=== PATIENT | female | born 1960 | race Caucasian/White ===

== ENCOUNTER 2017-06-07 12:19 | Emergency (ER) | payer MEDICAID, OTHER ==
[~2017-06-07] VITALS: Ht 162.6 cm; Wt 86.2 kg
[~2017-06-07 12:19] MED LIST: ALEN70TA45 PO; ASPI81TA31 PO; BACL10TA PO; CALC-1105 PO; CHOL100034 PO; CYAN10009 PO; DULO60CA45 PO; FLUT50DI IH; GABA600T PO; GING250C PO; LORA10TA47 PO; LOSA50TA3 PO; MAGN400C PO; METO50TA7 PO; NORT25CA PO; OMEP40CA37 PO; OXYM30SP NS; PREG200C PO; SODI1KIT4 NS; TRAZ-147 PO
--- NOTE | 2017-06-07 12:35 | NUR ---
Patient is resting comfortably on gurney with eyes closed, extra warm blankets x2 on, comfort & safety measures initiated. Potential delays explained to patient & family- verbalized understanding. No questions or concerns at this time.
[2017-06-07] MEDS ORDERED: PRED1TAB PO (12:51)
[2017-06-07] MEDS ORDERED: ATOR20TA PO (12:51)
[2017-06-07] MEDS ORDERED: SULI200T4 PO (12:51)
[2017-06-07] MEDS ORDERED: HYDR200T4 PO (12:51)
[2017-06-07] MEDS ORDERED: LOSA50TA21 PO (12:51)
[2017-06-07] MEDS ORDERED: GABA600T2 PO (12:51)
[2017-06-07] MEDS ORDERED: METO-304 PO (12:51)
[2017-06-07] MEDS ORDERED: CLON1TAB4 PO (12:51)
[2017-06-07] MEDS ORDERED: CALCIUM CITRATE (12:51)
[2017-06-07] MEDS ORDERED: [UNRECOGNIZED DRUG - REMARK] (12:51)
[2017-06-07] MEDS ORDERED: MISO200T PO (12:51)
[2017-06-07] MEDS ORDERED: VITAMIN E (12:51)
[2017-06-07] MEDS ORDERED: DULO60CA45 PO (12:51)
[2017-06-07] MEDS ORDERED: SUCR1TAB PO (12:51)
[2017-06-07] MEDS ORDERED: PANT40TA4 PO (12:51)
[2017-06-07] MEDS ORDERED: [UNRECOGNIZED DRUG - OTHER] PO (12:51)
[2017-06-07] MEDS ORDERED: VITAMIN B12 (12:51)
[2017-06-07] MEDS ORDERED: QUET25TA PO (12:51)
[2017-06-07] MEDS ORDERED: LURA40TA PO (12:51)
[2017-06-07] MEDS ORDERED: ASPI-605 PO (12:51)
[2017-06-07] MEDS ORDERED: ALENDRONATE (12:51)
[2017-06-07] MEDS ORDERED: TRAZ-147 PO (12:51)
[2017-06-07] MEDS ORDERED: SULF500T6 PO ×2 (12:51)
[2017-06-07] MEDS ORDERED: [UNRECOGNIZED DRUG - MIXTURE] (12:51)
--- NOTE | 2017-06-07 13:17 | NUR ---
MD at bedside evaluating patient, pending MD orders at this time
--- NOTE | 2017-06-07 14:33 | NUR ---
Patient discharged to home in stable conditon. Written and verbal after care instructions given to patient and adult daughter. Patient and family verbalized understanding of instructions.
== END 2017-06-07 14:33 | disposition home or self-care (01) ==
LOC: ER 12:19
DX: M54.2 Cervicalgia (principal); I10 Essential (primary) hypertension; M79.7 Fibromyalgia; Z79.82 Long term (current) use of aspirin
CPT/HCPCS: 71010; 96372 ×4; 99284; A4663; J1170 ×2; J2550 ×2

== ENCOUNTER 2017-08-06 10:14 | Emergency (ER) | payer OTHER ==
[~2017-08-06] VITALS: Ht 162.6 cm; Wt 80.3 kg
[~2017-08-06 10:14] MED LIST changes: +ALENDRONATE; +ASPI-605 PO; +ATOR20TA PO; +CALCIUM CITRATE; +CLON1TAB4 PO; +GABA600T2 PO; +HYDR200T4 PO; +LOSA50TA21 PO; +LURA40TA PO; +METO-304 PO; +MISO200T PO; +PANT40TA4 PO; +PRED1TAB PO; +QUET25TA PO; +SUCR1TAB PO; +SULF500T6 PO; +SULI200T4 PO; +VITAMIN B12; +VITAMIN E; +[UNRECOGNIZED DRUG - MIXTURE]; +[UNRECOGNIZED DRUG - OTHER] PO; +[UNRECOGNIZED DRUG - REMARK]
--- NOTE | 2017-08-06 10:30 | NUR ---
DR SUNG AT THE BEDSIDE FOR EVAL AND EXAM.
[2017-08-06] MEDS ORDERED: HYDROMORPHONE 1 MG/1 ML DISP.SYRIN IM ONE (10:45)
[2017-08-06] MEDS ORDERED: PROMETHAZINE HCL 25 MG/1 ML VIAL IM ONE (10:45)
[2017-08-06] MEDS ORDERED: HYDROMORPHONE 2 MG/1 ML DISP.SYRIN ONE (10:54)
[2017-08-06] MEDS ORDERED: PROMETHAZINE HCL 25 MG/1 ML VIAL ONE (10:55)
--- NOTE | 2017-08-06 11:11 | NUR ---
Patient discharged to home in stable conditon. Written and verbal after care instructions given. Patient verbalizes understanding of instructions. PT LEFT ER ACCOMAPINED BY FAMILY.
[2017-08-06 11:12] VITALS: BP 113/62
== END 2017-08-06 11:13 | disposition home or self-care (01) ==
LOC: ER 10:14
DX: G89.29 Other chronic pain (principal); M54.9 Dorsalgia, unspecified; I10 Essential (primary) hypertension; F32.9 Major depressive disorder, single episode, unspecified; M79.7 Fibromyalgia; Z79.82 Long term (current) use of aspirin
CPT/HCPCS: 96372 ×2; 99284; A4663; J1170; J2550

== ENCOUNTER 2017-11-03 19:06 | Emergency (ER) | payer OTHER ==
[~2017-11-03] VITALS: Ht 160 cm; Wt 82.6 kg
[~2017-11-03 19:06] MED LIST changes: -METO-304 PO; +METO-357 PO
--- NOTE | 2017-11-03 19:50 | NUR ---
Dr Gibson at bedside for assessment and evaluation
[2017-11-03] MEDS ORDERED: diphenhydrAMINE 50 MG/1 ML VIAL ONE ×2 (20:12→20:57)
[2017-11-03] MEDS ORDERED: HYDROMORPHONE 2 MG/1 ML DISP.SYRIN ONE ×2 (20:13→20:58)
[2017-11-03] MEDS ORDERED: HYDROMORPHONE 1 MG/1 ML DISP.SYRIN IM ONE ×2 (20:15→21:00)
[2017-11-03] MEDS ORDERED: diphenhydrAMINE 50 MG/1 ML VIAL IM ONE ×2 (20:15→21:00)
[2017-11-03 20:26] LABS: BASOPHILS # (AUTO) 0.1 K/uL (0.0-8.0); BASOPHILS % (AUTO) 0.9 % (0.0-2.0); EOSINOPHILS # (AUTO) 0.2 K/uL (0.0-0.7); EOSINOPHILS % (AUTO) 2.2 % (0.0-7.0); HEMATOCRIT 35.2 % (31.2-41.9); HEMOGLOBIN 11.9 g/dL (10.9-14.3); LYMPHOCYTES # (AUTO) 2.1 K/uL (20.0-40.0); LYMPHOCYTES % (AUTO) 30.9 % (20.5-51.5); MEAN CORPUSCULAR HEMOGLOBIN 31.8 uug (24.7-32.8); MEAN CORPUSCULAR HGB CONC 34 g/dL (32.3-35.6); MEAN CORPUSCULAR VOLUME 94.1 fL (75.5-95.3); MONOCYTES # (AUTO) 0.6 K/uL (2.0-10.0); MONOCYTES % (AUTO) 9.3 % (0.0-11.0); NEUTROPHILS # (AUTO) 3.8 K/uL (1.8-8.9); NEUTROPHILS % (AUTO) 56.7 % (38.5-71.5); PLATELET COUNT (AUTO) 160 K/uL (179-408); RED BLOOD CELL COUNT(AUTO) 3.74 MIL/uL (3.63-4.92); WHITE BLOOD COUNT (AUTO) 6.8 K/uL (3.8-11.8)
--- NOTE | 2017-11-03 20:26 | NUR ---
burner technician at bedside to transport patient for CT
[2017-11-03 20:32] LABS: CREATININE 0.9 mg/dL (0.6-1.3); POTASSIUM 4.2 mmol/L (3.5-5.1)
[2017-11-03 20:38] LABS: BILIRUBIN,TOTAL 0.3 mg/dL (0.2-1.0)
--- NOTE | 2017-11-03 20:38 | NUR ---
Returned from CT, no significant events. Addendum: 11/03/17 at 2039 by LENNIE Pending results
--- NOTE | 2017-11-03 22:18 | NUR ---
Patient discharged to home in stable conditon accompanied by daughter. Instructed not to drive. Written and verbal after care instructions given. Patient verbalizes understanding of instructions. Assisted to auto with wheelchair. Left facility at [id number]
[2017-11-03 22:20] VITALS: BP 148/67
== END 2017-11-03 22:20 | disposition home or self-care (01) ==
LOC: ER 19:07
DX: M51.16 Intervertebral disc disorders with radiculopathy, lumbar region (principal); I10 Essential (primary) hypertension; G89.29 Other chronic pain; Z79.82 Long term (current) use of aspirin; Z79.891 Long term (current) use of opiate analgesic; Z79.899 Other long term (current) drug therapy; Z90.710 Acquired absence of both cervix and uterus
CPT/HCPCS: 36415; 72131; 80053; 85025; 85651; 96372 ×4; 99285; A4663; J1170 ×2; J1200 ×2

== ENCOUNTER 2018-10-02 16:15 | Emergency (ER) | payer OTHER ==
[~2018-10-02] VITALS: Ht 162.6 cm; Wt 66.7 kg
[~2018-10-02 16:15] MED LIST changes: -ALEN70TA45 PO; +ALEN70TA6 PO; +CLON1TAB12 PO; -CLON1TAB4 PO; +GABA600T12 PO; -GABA600T2 PO; -LOSA50TA21 PO; +LOSA50TA39 PO; -TRAZ-147 PO; +TRAZ-214 PO
--- NOTE | 2018-10-02 16:29 | NUR ---
PT A/OX4, PRESENTS TO THE ER W/ DAUGHTER, C/O BLISTERS TO BILATERAL HANDS. 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 PT DENIES CONTACT W/ FLAME. UPON ASSESSMENT, BLISTERS ARE INTACT. PT REPORTS NON-PROVOKED PAIN, BURNING PAIN, DOES NOT RADIATE, 5/10, CONSTANT. PT DENIES C/P, SOB, N/V/D, DIZZINESS, HEADACHE.
--- NOTE | 2018-10-02 16:42 | NUR ---
GERALDINE AYON AT BEDSIDE FOR MSE.
[2018-10-02] MEDS ORDERED: SILVER SULFADIAZINE 1% CREAM 50 GM TP ONE (16:45)
[2018-10-02] MEDS ORDERED: SILVER SULFADIAZINE 1% CREAM 25 GM TUBE TP ONE (16:47)
--- NOTE | 2018-10-02 16:54 | NUR ---
Patient discharged to home in stable conditon. Written and verbal after care instructions given. Patient verbalizes understanding of instructions. L HAND BURN DRESSED W/ CLEAN DRESSING. ALL BELONGINGS W/ PT. PT SELF-AMBULATED W/O DIFFICULTY.
[2018-10-02 16:56] VITALS: BP 112/57
== END 2018-10-02 16:56 | disposition home or self-care (01) ==
LOC: ER 16:17
DX: T23.252A Burn of second degree of left palm, initial encounter (principal); I10 Essential (primary) hypertension; G89.29 Other chronic pain; M54.9 Dorsalgia, unspecified; Z90.710 Acquired absence of both cervix and uterus; Z79.899 Other long term (current) drug therapy; Z79.82 Long term (current) use of aspirin; Z79.51 Long term (current) use of inhaled steroids; X12.XXXA Contact with other hot fluids, initial encounter; Y93.89 Activity, other specified; Y92.89 Other specified places as the place of occurrence of the external cause; Y99.8 Other external cause status
CPT/HCPCS: 16020; A4663

== ENCOUNTER 2018-10-27 20:11 | Emergency (ER) | payer OTHER ==
[~2018-10-27] VITALS: Ht 165.1 cm; Wt 68.0 kg
--- NOTE | 2018-10-27 20:43 | NUR ---
Patient provided with aftercare instructions. Patient verbalizes understanding.
[2018-10-27 20:46] VITALS: BP 124/80
== END 2018-10-27 20:47 | disposition home or self-care (01) ==
LOC: ER 20:11
DX: T23.201D Burn of second degree of right hand, unspecified site, subsequent encounter (principal); I10 Essential (primary) hypertension; G89.29 Other chronic pain; M54.9 Dorsalgia, unspecified; Z90.710 Acquired absence of both cervix and uterus; Z79.82 Long term (current) use of aspirin; Z79.51 Long term (current) use of inhaled steroids; Z79.899 Other long term (current) drug therapy; X58.XXXD Exposure to other specified factors, subsequent encounter
CPT/HCPCS: A4663

== ENCOUNTER 2018-11-10 20:02 | Emergency (ER) | payer OTHER ==
[~2018-11-10] VITALS: Ht 172.7 cm; Wt 81.6 kg
[2018-11-10] MEDS ORDERED: NITROGLYCERIN 0.4 MG/TAB BOTTLE SL ONE ×2 (20:15→20:27)
[2018-11-10] MEDS ORDERED: ASPIRIN 325 MG TABLET PO ONE (20:15)
[2018-11-10] MEDS ORDERED: ASPIRIN 325 MG TABLET ONE (20:27)
[2018-11-10 20:29] LABS: BASOPHILS # (AUTO) 0.1 K/uL (0.0-8.0); BASOPHILS % (AUTO) 1.4 % (0.0-2.0); EOSINOPHILS # (AUTO) 0.1 K/uL (0.0-0.7); EOSINOPHILS % (AUTO) 1.9 % (0.0-7.0); HEMATOCRIT 38.3 % (31.2-41.9); HEMOGLOBIN 13.1 g/dL (10.9-14.3); LYMPHOCYTES # (AUTO) 1.5 K/uL (20.0-40.0); LYMPHOCYTES % (AUTO) 36.4 % (20.5-51.5); MEAN CORPUSCULAR HEMOGLOBIN 32.8 uug (24.7-32.8); MEAN CORPUSCULAR HGB CONC 34 g/dL (32.3-35.6); MEAN CORPUSCULAR VOLUME 95.4 fL (75.5-95.3); MONOCYTES # (AUTO) 0.7 K/uL (2.0-10.0); NEUTROPHILS # (AUTO) 1.8 K/uL (1.8-8.9); NEUTROPHILS % (AUTO) 43.3 % (38.5-71.5); PLATELET COUNT (AUTO) 136 K/uL (179-408); RED BLOOD CELL COUNT(AUTO) 4.01 MIL/uL (3.63-4.92); WHITE BLOOD COUNT (AUTO) 4.3 K/uL (3.8-11.8)
--- NOTE | 2018-11-10 20:33 | NUR ---
2ND DOSE NITRO 0.4 MG GIVEN CP 8 B/P 126/70
[2018-11-10 20:36] LABS: CREATININE 0.8 mg/dL (0.6-1.3); POTASSIUM 3.8 mmol/L (3.5-5.1)
--- NOTE | 2018-11-10 20:38 | NUR ---
3RD NITRO SL ADMINISTERED
[2018-11-10 20:48] LABS: BILIRUBIN,DIRECT 0.1 mg/dL (0.0-0.2); BILIRUBIN,TOTAL 0.3 mg/dL (0.2-1.0); TOTAL PROTEIN, SERUM 6.7 g/dL (6.4-8.2)
[2018-11-10] MEDS ORDERED: NITROGLYCERIN OINT 1 GM PACKET TP ONE ×2 (20:59→21:00)
[2018-11-10] MEDS ORDERED: ONDANSETRON 4 MG/2 ML VIAL ONE (20:59)
[2018-11-10] MEDS ORDERED: ONDANSETRON 4 MG/2 ML VIAL IV ONE (21:00)
[2018-11-10] MEDS ORDERED: MORPHINE SULFATE 2 MG/1 ML DISP.SYRIN IV ONE (21:00)
[2018-11-10] MEDS ORDERED: MORPHINE SULFATE 2 MG/1 ML DISP.SYRIN ONE (21:00)
[2018-11-10 21:04] VITALS: BP 118/65
[2018-11-10 21:04] LABS: BAND % (MANUAL) 5 % (0-10); EOSINOPHILS % (MANUAL) 2 % (0-8); LYMPHOCYTES % (MANUAL) 38 % (20-40); MONOCYTES % (MANUAL) 16 % (2-10); NEUTROPHILS % (MANUAL) 39 % (42-75)
--- NOTE | 2018-11-11 00:25 | NUR ---
Received call from Amy from [facility]. Patient to be transferred to [facility], to room 610B, number to report #
--- NOTE | 2018-11-11 01:31 | NUR ---
Called [facility] for transportation to [facility], spoke with Fabian, Trip#[id number], ETA [phone].
--- NOTE | 2018-11-11 03:18 | NUR ---
Report given to irrigator valve pipe #[id number]. Patient aware of plan of care. IV noted to be in right ac 20 g.
== END 2018-11-11 03:25 | disposition short-term general hospital (02) ==
LOC: ER 20:02
DX: R07.89 Other chest pain (principal); D69.6 Thrombocytopenia, unspecified; R42 Dizziness and giddiness; I10 Essential (primary) hypertension; E78.5 Hyperlipidemia, unspecified; G89.29 Other chronic pain; M54.9 Dorsalgia, unspecified; Z90.710 Acquired absence of both cervix and uterus; Z79.82 Long term (current) use of aspirin; Z79.51 Long term (current) use of inhaled steroids; Z79.899 Other long term (current) drug therapy
CPT/HCPCS: 36415; 71045; 80048; 80076; 83880; 84484 ×2; 85025; 85379; 85730; 93005 ×2; 96374; 96375; 99285; J2270; J2405; 70030-TC; A4663

== ENCOUNTER 2022-01-08 14:15 | Emergency (ER) | payer OTHER ==
[~2022-01-08] VITALS: Ht 162.6 cm; Wt 81.6 kg
[~2022-01-08 14:15] MED LIST changes: -ALEN70TA6 PO; +ALEN70TA80 PO; +OMEP40CA21 PO; -OMEP40CA37 PO; -PANT40TA4 PO; +PANT40TA49 PO; -TRAZ-214 PO; +TRAZ-257 PO
--- NOTE | 2022-01-08 14:20 | NUR ---
Patient seen by physician.
[2022-01-08] MEDS ORDERED: IPRATROPIUM BROMIDE 0.5 MG/2.5 ML NEBU NEB ONE (15:00)
[2022-01-08] MEDS ORDERED: ALBUTEROL SULFATE 2.5 MG/3 ML NEBU NEB ONE (15:00)
[2022-01-08] MEDS ORDERED: HYDR200T4 PO (15:28)
[2022-01-08] MEDS ORDERED: MISO200T PO (15:28)
[2022-01-08] MEDS ORDERED: METO25TA6 PO (15:28)
[2022-01-08] MEDS ORDERED: CARI3CAP PO (15:28)
[2022-01-08] MEDS ORDERED: DULO60CA45 PO (15:28)
[2022-01-08] MEDS ORDERED: FOLI1TAB94 PO (15:28)
[2022-01-08] MEDS ORDERED: ATOR40TA PO (15:28)
[2022-01-08] MEDS ORDERED: TOPI50TA24 PO (15:28)
[2022-01-08] MEDS ORDERED: GABA600T12 PO (15:28)
[2022-01-08] MEDS ORDERED: TRAZ-257 PO (15:28)
[2022-01-08] MEDS ORDERED: MV-M1TAB18 PO (15:28)
[2022-01-08] MEDS ORDERED: IRBE300T19 PO (15:28)
[2022-01-08] MEDS ORDERED: LAMO25TA10 PO (15:28)
[2022-01-08] MEDS ORDERED: METH2.5T PO (15:28)
[2022-01-08] MEDS ORDERED: TOPI100T38 PO (15:28)
[2022-01-08] MEDS ORDERED: ASPI81TA31 PO (15:28)
[2022-01-08] MEDS ORDERED: SULI200T4 PO (15:28)
[2022-01-08] MEDS ORDERED: LAMO100T17 PO (15:28)
[2022-01-08] MEDS ORDERED: GABA-532 PO (15:28)
[2022-01-08] MEDS ORDERED: PANT40TA49 PO (15:28)
[2022-01-08] MEDS ORDERED: ALBUTEROL SULFATE 2.5 MG/3 ML NEBU ONE (15:36)
[2022-01-08] MEDS ORDERED: IPRATROPIUM BROMIDE 0.5 MG/2.5 ML NEBU ONE (15:37)
[2022-01-08] MEDS ORDERED: ALBU18HF2 INH (16:13)
[2022-01-08] MEDS ORDERED: AZIT250T13 PO (16:13)
[2022-01-08] MEDS ORDERED: PRED50TA PO (16:14)
--- NOTE | 2022-01-08 16:24 | NUR ---
DCD instructions given to pt. with help of family member serving as interpreter deaf. Pt. verbalized understanding and left room ambulatory AAOx4.
== END 2022-01-08 16:27 | disposition home or self-care (01) ==
LOC: ER 14:15
DX: J44.0 Chronic obstructive pulmonary disease with (acute) lower respiratory infection (principal); J20.9 Acute bronchitis, unspecified; F17.200 Nicotine dependence, unspecified, uncomplicated; I10 Essential (primary) hypertension; E78.5 Hyperlipidemia, unspecified; M79.7 Fibromyalgia; M06.9 Rheumatoid arthritis, unspecified; I09.9 Rheumatic heart disease, unspecified; F31.9 Bipolar disorder, unspecified; G89.29 Other chronic pain; Z79.899 Other long term (current) drug therapy
CPT/HCPCS: 71046; A4663; J3590

== ENCOUNTER 2023-03-25 16:35 | Emergency (ER) | payer OTHER ==
[~2023-03-25] VITALS: Ht 160 cm; Wt 75.3 kg
[~2023-03-25 16:35] MED LIST changes: +ALBU18HF2 INH; +ATOR40TA PO; +AZIT250T13 PO; +CARI3CAP PO; +FOLI1TAB94 PO; +GABA-532 PO; +IRBE300T19 PO; +LAMO100T17 PO; +LAMO25TA10 PO; +METH2.5T PO; +METO25TA6 PO; +MV-M1TAB18 PO; +PRED50TA PO; +TOPI100T38 PO; +TOPI50TA24 PO
[2023-03-25] MEDS ORDERED: NEOMY/BACITRA/POLYMYXIN B OINT UD PACKET TP ONE ×2 (17:00→17:04)
[2023-03-25] MEDS ORDERED: TDAP DIPH,PERTUSS,TET VAC/PF 0.5 ML DISP.SYRIN IM ONE ×2 (17:00→17:05)
[2023-03-25] MEDS ORDERED: IBUPROFEN 600 MG TABLET PO ONE (17:00)
[2023-03-25] MEDS ORDERED: IBUPROFEN 600 MG TABLET ONE (17:05)
[2023-03-25] MEDS ORDERED: ACET-2605 PO (17:07)
--- NOTE | 2023-03-25 17:15 | NUR ---
Pt seen by MD for bedside eval. Safety measures in place. Will continue to monitor.
--- NOTE | 2023-03-25 18:02 | NUR ---
Patient discharged to home in stable condition. Written and verbal after care instructions given. Patient verbalizes understanding of instructions. Stressed follow up or return to ER for worsening s/s.
[2023-03-25 18:03] VITALS: BP 131/41; TEMP 208.4; O2SAT 100
== END 2023-03-25 18:05 | disposition home or self-care (01) ==
LOC: ER 16:35
DX: S60.222A Contusion of left hand, initial encounter (principal); S80.212A Abrasion, left knee, initial encounter; S80.211A Abrasion, right knee, initial encounter; I10 Essential (primary) hypertension; E78.5 Hyperlipidemia, unspecified; Z90.710 Acquired absence of both cervix and uterus; Z79.2 Long term (current) use of antibiotics; Z79.82 Long term (current) use of aspirin; Z79.899 Other long term (current) drug therapy; W01.0XXA Fall on same level from slipping, tripping and stumbling without subsequent striking against object, initial encounter; Y93.89 Activity, other specified; Y92.89 Other specified places as the place of occurrence of the external cause; Y99.8 Other external cause status
CPT/HCPCS: 73130; 90715; A4663

== ENCOUNTER 2023-09-05 17:37 | Emergency (ER) | payer OTHER ==
[~2023-09-05 17:37] MED LIST changes: +ACET-2605 PO
[2023-09-05] MEDS ORDERED: PROCHLORPERAZINE EDISYLATE 10 MG/2 ML VIAL IM ONE (20:15)
[2023-09-05] MEDS ORDERED: ACETAMINOPHEN ES 500 MG TABLET PO ONE (20:15)
[2023-09-05 20:20] LABS: BASOPHILS # (AUTO) 0.1 K/UL (0.0-0.2); BASOPHILS % (AUTO) 2.2 % (0.0-2.0); EOSINOPHILS # (AUTO) 0.3 K/uL (0.0-0.7); EOSINOPHILS % (AUTO) 4.7 % (0.0-7.0); HEMATOCRIT 31.9 % (31.2-41.9); LYMPHOCYTES # (AUTO) 1.5 K/uL (0.8-4.8); LYMPHOCYTES % (AUTO) 23.1 % (20.5-51.5); MEAN CORPUSCULAR HEMOGLOBIN 35.9 uug (24.7-32.8); MEAN CORPUSCULAR HGB CONC 34 g/dL (32.3-35.6); MEAN CORPUSCULAR VOLUME 104.3 fL (75.5-95.3); MONOCYTES # (AUTO) 0.7 K/uL (0.1-1.30); MONOCYTES % (AUTO) 11.2 % (0.0-11.0); NEUTROPHILS # (AUTO) 3.9 K/uL (1.8-8.9); NEUTROPHILS % (AUTO) 58.8 % (38.5-71.5); PLATELET COUNT (AUTO) 246 K/uL (179-408); RED BLOOD CELL COUNT(AUTO) 3.05 MIL/uL (3.63-4.92); RED CELL DISTRIBUTION WIDTH 15.8 % (12.3-17.7); WHITE BLOOD COUNT (AUTO) 6.7 K/uL (3.8-11.8)
[2023-09-05] MEDS ORDERED: ACETAMINOPHEN ES 500 MG TABLET ONE (20:25)
[2023-09-05] MEDS ORDERED: PROCHLORPERAZINE EDISYLATE 10 MG/2 ML VIAL ONE (20:25)
[2023-09-05 20:31] LABS: ALBUMIN 3.9 g/dL (3.4-5.0); BILIRUBIN,DIRECT 0.1 mg/dL (0.0-0.2); BILIRUBIN,TOTAL 0.5 mg/dL (0.2-1.0); TOTAL PROTEIN, SERUM 6.8 g/dL (6.4-8.2)
[2023-09-05 20:45] LABS: DIFFERENTIAL COMMENT 1
[2023-09-05 20:52] LABS: CALCIUM 8.9 mg/dL (8.5-10.1); CREATININE 1.3 mg/dL (0.6-1.3); POTASSIUM 2.9 mmol/L (3.5-5.1)
[2023-09-05] MEDS ORDERED: POTASSIUM CHLORIDE 20 MEQ TAB.PRT.SR PO ONE (21:15)
[2023-09-05] MEDS ORDERED: POTASSIUM CHLORIDE 20 MEQ TAB.PRT.SR ONE (22:07)
[2023-09-05] MEDS ORDERED: BUTA1CAP46 PO ×2 (22:26→22:29)
[2023-09-05] MEDS ORDERED: POTA-88 PO (22:26)
[2023-09-05 23:13] VITALS: BP 138/78; O2SAT 97
== END 2023-09-05 23:14 | disposition home or self-care (01) ==
LOC: ER 17:41
DX: S06.0X0A Concussion without loss of consciousness, initial encounter (principal); G20.A1 Parkinson's disease without dyskinesia, without mention of fluctuations; E87.6 Hypokalemia; I10 Essential (primary) hypertension; E78.5 Hyperlipidemia, unspecified; F31.9 Bipolar disorder, unspecified; Z79.899 Other long term (current) drug therapy; Z90.49 Acquired absence of other specified parts of digestive tract; Z79.82 Long term (current) use of aspirin; W18.39XA Other fall on same level, initial encounter; Y93.89 Activity, other specified; Y92.89 Other specified places as the place of occurrence of the external cause; Y99.8 Other external cause status
CPT/HCPCS: 99285; 70450; 80076; 80048; 85025; 36415; 96372; J0780; A4606; A4663; A9150

== ENCOUNTER 2024-03-27 13:33 | Inpatient (IN) | payer OTHER ==
[~2024-03-27] VITALS: Ht 162.6 cm; Wt 56.2 kg
[~2024-03-27 13:33] MED LIST changes: +BUTA1CAP46 PO; +POTA-88 PO
[2024-03-27] MEDS ORDERED: FERR325T30 PO (14:09)
[2024-03-27] MEDS ORDERED: FURO40TA5 PO (14:09)
[2024-03-27] MEDS ORDERED: VALA100026 PO (14:09)
[2024-03-27] MEDS ORDERED: LAMO100T17 PO (14:09)
[2024-03-27] MEDS ORDERED: LORA0.5T48 PO (14:09)
[2024-03-27] MEDS ORDERED: PRIM250T32 PO (14:09)
[2024-03-27] MEDS ORDERED: CARB1TAB21 PO ×2 (14:09→14:14)
[2024-03-27] MEDS ORDERED: PRAM0.253 PO (14:09)
[2024-03-27] MEDS ORDERED: TOPI50TA24 PO ×2 (14:09)
[2024-03-27] MEDS ORDERED: CARIPRAZINE PO (14:09)
[2024-03-27] MEDS ORDERED: EZET10TA15 PO (14:09)
[2024-03-27] MEDS ORDERED: MIRT7.5T10 PO (14:09)
[2024-03-27] MEDS ORDERED: AMAN100T PO (14:10)
[2024-03-27] MEDS ORDERED: ASPI81TA31 PO (14:10)
[2024-03-27] MEDS ORDERED: DONE5TAB34 PO (14:10)
[2024-03-27] MEDS ORDERED: VITAMIN D3 PO (14:10)
[2024-03-27] MEDS ORDERED: ROSU10TA2 PO (14:10)
[2024-03-27 14:12] LABS: BASOPHILS # (AUTO) 0.2 K/UL (0.0-0.2); BASOPHILS % (AUTO) 2.1 % (0.0-2.0); EOSINOPHILS # (AUTO) 0.4 K/uL (0.0-0.7); EOSINOPHILS % (AUTO) 4.3 % (0.0-7.0); HEMOGLOBIN 13.1 g/dL (10.9-14.3); LYMPHOCYTES # (AUTO) 0.8 K/uL (0.8-4.8); LYMPHOCYTES % (AUTO) 8.6 % (20.5-51.5); MEAN CORPUSCULAR HEMOGLOBIN 34.4 uug (24.7-32.8); MEAN CORPUSCULAR HGB CONC 34 g/dL (32.3-35.6); MEAN CORPUSCULAR VOLUME 102.5 fL (75.5-95.3); MONOCYTES # (AUTO) 0.5 K/uL (0.1-1.30); MONOCYTES % (AUTO) 5.8 % (0.0-11.0); NEUTROPHILS # (AUTO) 7.4 K/uL (1.8-8.9); NEUTROPHILS % (AUTO) 79.2 % (38.5-71.5); PLATELET COUNT (AUTO) 274 K/uL (179-408); WHITE BLOOD COUNT (AUTO) 9.3 K/uL (3.8-11.8)
[2024-03-27 14:25] LABS: ETHANOL < 3 MG/DL (0-10)
[2024-03-27 14:34] LABS: DIFFERENTIAL COMMENT 1
[2024-03-27 14:35] LABS: LACTIC ACID 3.1 mmol/L (0.4-2.0)
[2024-03-27 14:52] LABS: ALANINE AMINOTRANSFERASE 11 U/L (14-59); ALBUMIN 4.4 g/dL (3.4-5.0); ALKALINE PHOSPHATASE 102 U/L (50-136); ASPARTATE AMINOTRANSFERASE 19 U/L (15-37); BILIRUBIN,DIRECT 0.2 mg/dL (0.0-0.2); BILIRUBIN,TOTAL 0.7 mg/dL (0.2-1.0); CALCIUM 10.2 mg/dL (8.5-10.1); CREATININE 1.6 mg/dL (0.6-1.3); GLUCOSE 158 mg/dL (74-106); SODIUM SERUM 129 mmol/L (136-145); TOTAL PROTEIN, SERUM 8.7 g/dL (6.4-8.2); UREA NITROGEN, BLOOD 37 mg/dL (7-18)
[2024-03-27 14:57] LABS: ACETAMINOPHEN < 2.0 ug/mL (10-30)
[2024-03-27 14:58] LABS: POTASSIUM 1.9 mmol/L (3.5-5.1)
[2024-03-27 14:59] LABS: CHLORIDE 73 mmol/L (98-107)
[2024-03-27] MEDS: CEFEPIME HCL 2 G in IV DEXTROSE 5% 100 ML IV ONE (15:30)
[2024-03-27 15:31] LABS: AMMONIA 15 umol/L (11-32)
[2024-03-27] MEDS: IV NORMAL SALINE 1000 ML BAG IV ONE (15:39)
[2024-03-27 15:44] LABS: CARBON DIOXIDE 70 mmol/L (21-32)
[2024-03-27] MEDS ORDERED: POTASSIUM CHLORIDE 50 ML ONE ×3 (15:46→19:58)
[2024-03-27] MEDS ORDERED: DEXAMETHASONE SOD PHOSPHATE 4 MG INJ ONE (15:46)
[2024-03-27] MEDS: POTASSIUM CHLORIDE 50 ML IV SCH (16:00)
[2024-03-27] MEDS: DEXAMETHASONE SOD PHOSPHATE 4 MG INJ IV ONE (16:00)
[2024-03-27 16:46] LABS: *BILIRUBIN,URIN NEGATIVE (NEGATIVE); *BLOOD, URINE NEGATIVE (NEGATIVE); *CLARITY,URINE CLEAR (CLEAR); *COLOR,URINE YELLOW (YELLOW); *KETONES,URINE NEGATIVE (NEGATIVE); *PROTEIN,URINE TRACE (NEGATIVE); *UROBILINOGEN,URINE 0.2 E.U./dl (NORMAL); LEUKOCYTE ESTERASE ,URINE NEGATIVE (NEGATIVE); NITRITE, URINE NEGATIVE (NEGATIVE); PH,URINE 6.5 (5.0-8.0); UGLUCOSE NEGATIVE (NEGATIVE)
[2024-03-27 16:54] LABS: RBC,URINE 0-3 /HPF (0-3); SQUAMOUS EPITHELIAL CELL,UR FEW /HPF (NONE SEEN); WBC,URINE 0-3 /HPF (0-3)
[2024-03-27 16:55] LABS: BACTERIA,URINE NONE SEEN /HPF (NONE SEEN)
[2024-03-27 17:01] LABS: *AMPHETAMINE, URINE NEGATIVE (NEGATIVE); *BARBITURATE, URINE POSITIVE (NEGATIVE); *BENZODIAZEPINE, URINE NEGATIVE (NEGATIVE); *CANNABINOID, URINE POSITIVE (NEGATIVE); *COCCAINE, URINE NEGATIVE (NEGATIVE); *OPIATE, URINE NEGATIVE (NEGATIVE); *PHENCYCLIDINE SCREEN,URINE NEGATIVE (NEGATIVE)
[2024-03-27 17:02] LABS: FENTANYL, URINE NEGATIVE (NEGATIVE)
[2024-03-27 18:24] LABS: CALCIUM 8.8 mg/dL (8.5-10.1); CREATININE 1.2 mg/dL (0.6-1.3)
[2024-03-27 18:39] LABS: POTASSIUM 1.6 mmol/L (3.5-5.1)
[2024-03-27] MEDS ORDERED: ONDANSETRON 4 MG/2 ML VIAL IV PRN (21:00)
[2024-03-27 21:15] VITALS: BP 143/49; TEMP 98.3; O2SAT 99
[2024-03-27] MEDS: GABAPENTIN 300 MG CAPSULE PO SCH (22:21)
[2024-03-27] MEDS: MIRTAZAPINE 15 MG TABLET PO SCH (22:22)
[2024-03-27] MEDS: CARBIDOPA/LEVODOPA 25-100MG TABLET PO SCH (22:22)
[2024-03-27] MEDS: LORAZEPAM 0.5 MG TABLET PO PRN (22:26)
[2024-03-27] MEDS ORDERED: IV DEXTROSE 5%-0.9%NS+20MeqKCL 1,000 ML IV ONE (22:31)
[2024-03-27] MEDS: POTASSIUM CHLORIDE 20 MEQ in IV D5/ 0.9% NACL 1,000 ML IV PRN (22:35)
[2024-03-28] VITALS (8 sets, daily range): BP systolic 97–130; BP diastolic 34–40; TEMP 97.6–98.6; O2SAT 98–99
[2024-03-28] MEDS: PANTOPRAZOLE SODIUM 40 MG TABLET.DR PO SCH (06:17)
[2024-03-28 07:41] LABS: BASOPHILS % (AUTO) 0.2 % (0.0-2.0); EOSINOPHILS # (AUTO) 0.4 K/uL (0.0-0.7); EOSINOPHILS % (AUTO) 4.2 % (0.0-7.0); HEMATOCRIT 32.6 % (31.2-41.9); HEMOGLOBIN 11.3 g/dL (10.9-14.3); LYMPHOCYTES # (AUTO) 1.4 K/uL (0.8-4.8); LYMPHOCYTES % (AUTO) 16.6 % (20.5-51.5); MEAN CORPUSCULAR HEMOGLOBIN 35.5 uug (24.7-32.8); MEAN CORPUSCULAR HGB CONC 35 g/dL (32.3-35.6); MONOCYTES # (AUTO) 0.7 K/uL (0.1-1.30); MONOCYTES % (AUTO) 8.3 % (0.0-11.0); NEUTROPHILS # (AUTO) 6.1 K/uL (1.8-8.9); NEUTROPHILS % (AUTO) 70.7 % (38.5-71.5); PLATELET COUNT (AUTO) 219 K/uL (179-408); RED CELL DISTRIBUTION WIDTH 15.4 % (12.3-17.7); WHITE BLOOD COUNT (AUTO) 8.6 K/uL (3.8-11.8)
[2024-03-28 07:59] LABS: DIFFERENTIAL COMMENT 1
[2024-03-28] MEDS: DULOXETINE 60 MG CAPSULE.DR PO SCH (08:41)
[2024-03-28] MEDS: LAMOTRIGINE 100 MG TABLET PO SCH ×2 (08:41→20:34)
[2024-03-28] MEDS: ASPIRIN 81 MG TAB.CHEW PO SCH (08:41)
[2024-03-28] MEDS: DONEPEZIL 5 MG TABLET PO SCH (08:41)
[2024-03-28 08:47] LABS: ABG BASE EXCESS 17.2 mmol/L (-2.0-2.0); ABG HCO3 41.9 mmol/L (22.0-26.0); ABG PH 7.541 (7.340-7.440); ABG PO2 86.6 mmHg (75.0-100.0); ABG SITE LEFT RADIAL; ABG TOTAL HEMOGLOBIN 11.2 G/dL (12.0-16.0); AaDO2 97.3 mmHg; COHb 0.3 % (0.0-3.9); O2Hb 96.3 % (94.0-97.0)
[2024-03-28] MEDS: LIDOCAINE 5% PATCH TD SCH (08:52)
[2024-03-28] MEDS: PRIMIDONE 250 MG TABLET PO SCH (08:52)
[2024-03-28] MEDS: TOPIRAMATE 25 MG TABLET PO SCH (08:56)
[2024-03-28] MEDS: AMANTADINE HCL 100 MG CAPSULE PO SCH (08:57)
[2024-03-28] MEDS ORDERED: AMANTADINE HCL PO SCH (09:00)
[2024-03-28 09:32] LABS: ALBUMIN 3.3 g/dL (3.4-5.0); BILIRUBIN,TOTAL 0.6 mg/dL (0.2-1.0); CALCIUM 9.2 mg/dL (8.5-10.1); CREATININE 1.2 mg/dL (0.6-1.3); MAGNESIUM 2.4 mg/dL (1.8-2.4); TOTAL PROTEIN, SERUM 6.7 g/dL (6.4-8.2)
[2024-03-28] MEDS ORDERED: CARB1TAB39 PO ×2 (10:16)
[2024-03-28] MEDS ORDERED: LAMO100T17 PO (10:16)
[2024-03-28] MEDS: POTASSIUM CHLORIDE 50 ML IV SCH ×2 (10:35→18:46)
[2024-03-28] MEDS: POTASSIUM CHLORIDE 10 MEQ TAB.PRT.SR PO SCH ×2 (10:35→18:33)
[2024-03-28] MEDS ORDERED: IV NORMAL SALINE 250 ML IV ONE (11:00)
[2024-03-28] MEDS ORDERED: SWABABLE VALVE TRANSFER SET EA MC ONE (11:00)
[2024-03-28] MEDS ORDERED: IOHEXOL 350 100 ML INFUS..BTL ONE (11:00)
[2024-03-28] MEDS ORDERED: LUBI24CA5 PO (11:54)
[2024-03-28] MEDS: CARBIDOPA/LEVODOPA CR 25-100MG TABLET.SA PO SCH ×2 (12:52→18:33)
[2024-03-28 15:01] LABS: THYROID STIMULATING HORMONE 2.061 mIU/mL (0.358-3.740)
[2024-03-28] MEDS ORDERED: POTASSIUM CHLORIDE 20 MEQ TAB.PRT.SR PO ONE (15:25)
[2024-03-28] MEDS: NEUTRA PHOS PACKET PO ONE (16:58)
[2024-03-28] MEDS: [UNRECOGNIZED DRUG - REMARK] PO SCH (17:02)
[2024-03-28 17:21] LABS: BILIRUBIN,TOTAL 0.5 mg/dL (0.2-1.0); CALCIUM 8.8 mg/dL (8.5-10.1); CREATININE 1.1 mg/dL (0.6-1.3); TOTAL PROTEIN, SERUM 6.3 g/dL (6.4-8.2)
[2024-03-28 17:34] LABS: POTASSIUM 2.8 mmol/L (3.5-5.1)
[2024-03-28] MEDS ORDERED: CARBIDOPA/LEVODOPA 25-100MG TABLET PO SCH (18:00)
[2024-03-28] MEDS: TOPIRAMATE 100 MG TABLET PO SCH (18:32)
[2024-03-28] MEDS: diphenhydrAMINE 50 MG/1 ML VIAL IV PRN (20:34)
[2024-03-28] MEDS: ATORVASTATIN 40 MG TABLET PO SCH (20:34)
[2024-03-28] MEDS: METOCLOPRAMIDE HCL 10 MG/2 ML VIAL IV SCH (20:34)
[2024-03-28] MEDS: ACETAMINOPHEN 325 MG TABLET PO PRN (20:43)
[2024-03-29 00:01] VITALS: BP 111/44; TEMP 98.6; O2SAT 94
[2024-03-29] MEDS: LAMOTRIGINE 100 MG TABLET PO SCH (09:00)
[2024-03-29] MEDS ORDERED: POTASSIUM CHLORIDE 20 MEQ TAB.PRT.SR PO ONE (10:00)
[2024-03-29 10:11] LABS: BASOPHILS % (AUTO) 0.6 % (0.0-2.0); DIFFERENTIAL COMMENT 0; EOSINOPHILS # (AUTO) 0.7 K/uL (0.0-0.7); EOSINOPHILS % (AUTO) 9.5 % (0.0-7.0); HEMOGLOBIN 10.1 g/dL (10.9-14.3); LYMPHOCYTES # (AUTO) 1.9 K/uL (0.8-4.8); LYMPHOCYTES % (AUTO) 27.8 % (20.5-51.5); MEAN CORPUSCULAR HEMOGLOBIN 35.1 uug (24.7-32.8); MEAN CORPUSCULAR HGB CONC 34 g/dL (32.3-35.6); MEAN CORPUSCULAR VOLUME 104.2 fL (75.5-95.3); MONOCYTES # (AUTO) 0.7 K/uL (0.1-1.30); MONOCYTES % (AUTO) 10.7 % (0.0-11.0); NEUTROPHILS # (AUTO) 3.5 K/uL (1.8-8.9); NEUTROPHILS % (AUTO) 51.4 % (38.5-71.5); PLATELET COUNT (AUTO) 208 K/uL (179-408); RED BLOOD CELL COUNT(AUTO) 2.88 MIL/uL (3.63-4.92); RED CELL DISTRIBUTION WIDTH 16.4 % (12.3-17.7); WHITE BLOOD COUNT (AUTO) 6.9 K/uL (3.8-11.8)
[2024-03-29] MEDS: POTASSIUM CHLORIDE 20 MEQ TAB.PRT.SR PO ONE (10:38)
[2024-03-29 11:32] LABS: CALCIUM 9.1 mg/dL (8.5-10.1); CREATININE 1.2 mg/dL (0.6-1.3); MAGNESIUM 2.5 mg/dL (1.8-2.4); PHOSPHOROUS 1.5 mg/dL (2.5-4.9); POTASSIUM 3.1 mmol/L (3.5-5.1)
[2024-03-29 12:00] VITALS: BP 115/46; TEMP 97.8; O2SAT 96
[2024-03-29 15:52] VITALS: BP 113/39; TEMP 97.2; O2SAT 97
[2024-03-29] MEDS: NEUTRA PHOS PACKET PO ONE (16:16)
[2024-03-29 19:56] VITALS: BP 110/40; TEMP 98.6; O2SAT 96
[2024-03-30 00:09] VITALS: BP 98/37; TEMP 98.2; O2SAT 95
[2024-03-30 05:35] VITALS: BP 114/40; TEMP 98.4; O2SAT 95
[2024-03-30 06:23] LABS: BASOPHILS # (AUTO) 0.1 K/UL (0.0-0.2); BASOPHILS % (AUTO) 1.3 % (0.0-2.0); EOSINOPHILS # (AUTO) 0.7 K/uL (0.0-0.7); EOSINOPHILS % (AUTO) 10.1 % (0.0-7.0); HEMATOCRIT 28.9 % (31.2-41.9); LYMPHOCYTES # (AUTO) 2.6 K/uL (0.8-4.8); LYMPHOCYTES % (AUTO) 36.5 % (20.5-51.5); MEAN CORPUSCULAR HEMOGLOBIN 36.1 uug (24.7-32.8); MEAN CORPUSCULAR HGB CONC 35 g/dL (32.3-35.6); MEAN CORPUSCULAR VOLUME 104.3 fL (75.5-95.3); MONOCYTES # (AUTO) 0.8 K/uL (0.1-1.30); MONOCYTES % (AUTO) 10.8 % (0.0-11.0); NEUTROPHILS % (AUTO) 41.3 % (38.5-71.5); PLATELET COUNT (AUTO) 200 K/uL (179-408); RED BLOOD CELL COUNT(AUTO) 2.77 MIL/uL (3.63-4.92); RED CELL DISTRIBUTION WIDTH 16.4 % (12.3-17.7); WHITE BLOOD COUNT (AUTO) 7.2 K/uL (3.8-11.8)
[2024-03-30 06:38] LABS: CALCIUM 9.1 mg/dL (8.5-10.1); CREATININE 1.2 mg/dL (0.6-1.3); MAGNESIUM 2.1 mg/dL (1.8-2.4); PHOSPHOROUS 3.1 mg/dL (2.5-4.9); POTASSIUM 3.5 mmol/L (3.5-5.1)
[2024-03-30 06:43] LABS: DIFFERENTIAL COMMENT 1
[2024-03-30 08:00] VITALS: BP 127/54; TEMP 98.8; O2SAT 94
[2024-03-30] MEDS ORDERED: TRAMADOL HCL 50 MG TABLET PO PRN (09:00)
[2024-03-30 09:05] LABS: *CHLORIDE RNDM,URINE 60 mmol/L (100-250); *POTASSIUM RNDM,URINE 20 mmol/L (25-125); *SODIUM RNDM,URINE 90 mmol/L (40-220)
[2024-03-30] MEDS ORDERED: CARB1TAB21 PO (09:12)
[2024-03-30] MEDS ORDERED: LORA0.5T48 PO (09:24)
[2024-03-30 10:10] LABS: FOLATE (FOLIC ACID), SERUM 10.9 ng/mL (>3.0)
[2024-03-30] MEDS: CARBIDOPA/LEVODOPA 25-100MG TABLET PO SCH (10:34)
[2024-03-30 11:58] VITALS: BP 125/39; TEMP 98.2; O2SAT 100
[2024-03-30] MEDS ORDERED: POTA10CA43 PO (12:59)
[2024-03-30] MEDS ORDERED: FURO-152 PO (14:04)
[2024-03-30 16:00] VITALS: BP 106/37; TEMP 98.7; O2SAT 98
[2024-03-30] MEDS ORDERED: LORAZEPAM 0.5 MG TABLET PO SCH (21:00)
== END 2024-03-30 17:15 | disposition home health service (06) | DRG 422 ==
LOC: ER 13:55 → TELE3 20:25
PROVIDERS: ADMIT Internal Medicine; ATTEND Nurse Practitioner Family
PROC: 05HB33Z Insertion of Infusion Device into Right Basilic Vein, Percutaneous Approach (ICD-10-PCS; principal; 2024-03-28)
DX: E87.6 Hypokalemia (principal); E86.0 Dehydration; I63.9 Cerebral infarction, unspecified; G93.41 Metabolic encephalopathy; N17.9 Acute kidney failure, unspecified; I13.0 Hypertensive heart and chronic kidney disease with heart failure and stage 1 through stage 4 chronic kidney disease, or unspecified chronic kidney disease; I50.32 Chronic diastolic (congestive) heart failure; E87.4 Mixed disorder of acid-base balance; G45.9 Transient cerebral ischemic attack, unspecified; T50.2X5A Adverse effect of carbonic-anhydrase inhibitors, benzothiadiazides and other diuretics, initial encounter; Y92.89 Other specified places as the place of occurrence of the external cause; R47.1 Dysarthria and anarthria; R29.700 NIHSS score 0; G20.A1 Parkinson's disease without dyskinesia, without mention of fluctuations; E87.8 Other disorders of electrolyte and fluid balance, not elsewhere classified; M51.36 Other intervertebral disc degeneration, lumbar region; M06.9 Rheumatoid arthritis, unspecified; E78.5 Hyperlipidemia, unspecified; F31.9 Bipolar disorder, unspecified; I08.0 Rheumatic disorders of both mitral and aortic valves; Z79.82 Long term (current) use of aspirin; N18.9 Chronic kidney disease, unspecified; Z79.899 Other long term (current) drug therapy; I47.10 Supraventricular tachycardia, unspecified; M79.7 Fibromyalgia; Z87.891 Personal history of nicotine dependence; Z90.710 Acquired absence of both cervix and uterus; D64.9 Anemia, unspecified
CPT/HCPCS: 36415; 36600; 70450; 70496; 71045; 82746; 82803; 83550; 83605; 83735; 83921; 84100; 84133; 84300; 84443; 84484; 85025; 85730; 87040; 93005; 93307; A4606; A4663; C1758; G0378; G0480; J0692; J1100; J1200; J2765; J3480; J3490; J7042; Q9967

== ENCOUNTER 2024-10-21 21:18 | Emergency (ER) | payer OTHER ==
[~2024-10-21] VITALS: Ht 170.2 cm; Wt 70.3 kg
[~2024-10-21 21:18] MED LIST changes: -ACET-2605 PO; -ALBU18HF2 INH; -ALEN70TA80 PO; -ALENDRONATE; +AMAN100T PO; -ASPI-605 PO; -ATOR20TA PO; -ATOR40TA PO; -AZIT250T13 PO; -BACL10TA PO; -BUTA1CAP46 PO; -CALC-1105 PO; -CALCIUM CITRATE; +CARB1TAB21 PO; -CARI3CAP PO; +CARIPRAZINE PO; -CHOL100034 PO; -CLON1TAB12 PO; -CYAN10009 PO; +DONE5TAB34 PO; +EZET10TA15 PO; +FERR325T30 PO; -FLUT50DI IH; -FOLI1TAB94 PO; +FURO-152 PO; -GABA600T PO; -GING250C PO; -HYDR200T4 PO; -IRBE300T19 PO; -LAMO25TA10 PO; +LORA0.5T48 PO; -LORA10TA47 PO; -LOSA50TA3 PO; -LOSA50TA39 PO; +LUBI24CA5 PO; -LURA40TA PO; -MAGN400C PO; -METH2.5T PO; -METO-357 PO; -METO25TA6 PO; -METO50TA7 PO; +MIRT7.5T10 PO; -MISO200T PO; -MV-M1TAB18 PO; -NORT25CA PO; -OMEP40CA21 PO; -OXYM30SP NS; -PANT40TA49 PO; -POTA-88 PO; +POTA10CA43 PO; +PRAM0.253 PO; -PRED1TAB PO; -PRED50TA PO; -PREG200C PO; +PRIM250T32 PO; -QUET25TA PO; +ROSU10TA2 PO; -SODI1KIT4 NS; -SUCR1TAB PO; -SULF500T6 PO; -SULI200T4 PO; -TOPI100T38 PO; -TRAZ-257 PO; +VALA100026 PO; -VITAMIN B12; +VITAMIN D3 PO; -VITAMIN E; -[UNRECOGNIZED DRUG - MIXTURE]; -[UNRECOGNIZED DRUG - OTHER] PO; -[UNRECOGNIZED DRUG - REMARK]
[2024-10-21] MEDS: MORPHINE SULFATE 2 MG/1 ML DISP.SYRIN IV ONE (22:30)
[2024-10-21 22:33] LABS: BASOPHILS # (AUTO) 0.1 K/UL (0.0-0.2); BASOPHILS % (AUTO) 0.5 % (0.0-2.0); EOSINOPHILS # (AUTO) 0.1 K/uL (0.0-0.7); EOSINOPHILS % (AUTO) 0.7 % (0.0-7.0); HEMATOCRIT 36.3 % (31.2-41.9); HEMOGLOBIN 12.2 g/dL (10.9-14.3); LYMPHOCYTES # (AUTO) 1.6 K/uL (0.8-4.8); LYMPHOCYTES % (AUTO) 8.8 % (20.5-51.5); MEAN CORPUSCULAR HEMOGLOBIN 35.6 uug (24.7-32.8); MEAN CORPUSCULAR HGB CONC 34 g/dL (32.3-35.6); MEAN CORPUSCULAR VOLUME 105.7 fL (75.5-95.3); MONOCYTES # (AUTO) 1.2 K/uL (0.1-1.30); MONOCYTES % (AUTO) 6.9 % (0.0-11.0); NEUTROPHILS # (AUTO) 14.9 K/uL (1.8-8.9); NEUTROPHILS % (AUTO) 83.1 % (38.5-71.5); PLATELET COUNT (AUTO) 167 K/uL (179-408); RED BLOOD CELL COUNT(AUTO) 3.44 MIL/uL (3.63-4.92); RED CELL DISTRIBUTION WIDTH 14.1 % (12.3-17.7); WHITE BLOOD COUNT (AUTO) 17.9 K/uL (3.8-11.8)
[2024-10-21 22:39] LABS: DIFFERENTIAL COMMENT 1
[2024-10-21 22:48] LABS: CALCIUM 8.2 mg/dL (8.5-10.1); CARBON DIOXIDE 25 mmol/L (21-32); CHLORIDE 104 mmol/L (98-107); CREATININE 1.4 mg/dL (0.6-1.3); GLUCOSE 106 mg/dL (74-106); SODIUM SERUM 140 mmol/L (136-145); UREA NITROGEN, BLOOD 20 mg/dL (7-18)
[2024-10-21 23:02] LABS: ALANINE AMINOTRANSFERASE 7 U/L (14-59); ALBUMIN 3.6 g/dL (3.4-5.0); ALKALINE PHOSPHATASE 58 U/L (50-136); ASPARTATE AMINOTRANSFERASE 16 U/L (15-37); BILIRUBIN,DIRECT 0.2 mg/dL (0.0-0.2); BILIRUBIN,TOTAL 0.8 mg/dL (0.2-1.0); TOTAL PROTEIN, SERUM 6.7 g/dL (6.4-8.2)
[2024-10-21] MEDS ORDERED: MORPHINE SULFATE 2 MG/1 ML DISP.SYRIN ONE (23:03)
[2024-10-22] MEDS: MORPHINE SULFATE 4 MG/1 ML DISP.SYRIN IV ONE
[2024-10-22] MEDS: IV NORMAL SALINE 500 ML IV ONE (00:45)
[2024-10-22] MEDS: POTASSIUM CHLORIDE 20 MEQ TAB.PRT.SR PO ONE (00:45)
[2024-10-22] MEDS ORDERED: POTASSIUM CHLORIDE 20 MEQ TAB.PRT.SR ONE (01:01)
[2024-10-22] MEDS: HYDROMORPHONE 1 MG/1 ML DISP.SYRIN IV ONE ×2 (02:00→07:33)
[2024-10-22 02:05] LABS: *BILIRUBIN,URIN NEGATIVE (NEGATIVE); *BLOOD, URINE NEGATIVE (NEGATIVE); *CLARITY,URINE CLEAR (CLEAR); *COLOR,URINE YELLOW (YELLOW); *KETONES,URINE NEGATIVE (NEGATIVE); *PROTEIN,URINE NEGATIVE (NEGATIVE); *UROBILINOGEN,URINE 0.2 E.U./dl (NORMAL); LEUKOCYTE ESTERASE ,URINE NEGATIVE (NEGATIVE); NITRITE, URINE NEGATIVE (NEGATIVE); PH,URINE 5.5 (5.0-8.0); UGLUCOSE NEGATIVE (NEGATIVE)
[2024-10-22] MEDS ORDERED: HYDROMORPHONE 1 MG/1 ML DISP.SYRIN ONE ×2 (02:14→07:29)
[2024-10-22] MEDS ORDERED: ACETAMINOPHEN 325 MG TABLET PO ONE (05:15)
[2024-10-22] MEDS ORDERED: ONDANSETRON 4 MG/2 ML VIAL ONE (07:34)
[2024-10-22] MEDS: ONDANSETRON 4 MG/2 ML VIAL IV ONE (07:36)
[2024-10-22 10:42] VITALS: O2SAT 99
== END 2024-10-22 10:44 | disposition short-term general hospital (02) ==
LOC: ER 21:18
DX: R07.9 Chest pain, unspecified (principal); R50.9 Fever, unspecified; D72.829 Elevated white blood cell count, unspecified; N18.9 Chronic kidney disease, unspecified; E87.6 Hypokalemia; R35.0 Frequency of micturition; E78.5 Hyperlipidemia, unspecified; G20.A1 Parkinson's disease without dyskinesia, without mention of fluctuations; G25.0 Essential tremor; G89.29 Other chronic pain; I50.9 Heart failure, unspecified; M79.7 Fibromyalgia; Z20.822 Contact with and (suspected) exposure to COVID-19; Z79.899 Other long term (current) drug therapy; Z90.710 Acquired absence of both cervix and uterus
CPT/HCPCS: 99285; 96374; 76705; 71045; 80076; 80048; 83690; 85025; 85379; 85730; 84484 ×2; 36415 ×2; 93005; 71250; 96375; 87426; 87804 ×2; 81003; 74176; 96376; J2270 ×2; J1171 ×2; J2405; J7040; A4606; A4663

== ENCOUNTER 2025-05-07 15:25 | Emergency (ER) | payer MEDICAID, OTHER ==
[~2025-05-07] VITALS: Ht 162.6 cm; Wt 73.5 kg
[2025-05-07] MEDS ORDERED: LORAZEPAM 0.5 MG TABLET ONE (16:36)
[2025-05-07] MEDS: LORAZEPAM 0.5 MG TABLET PO ONE (16:40)
[2025-05-07 17:00] LABS: *BILIRUBIN,URIN 1+ (NEGATIVE); *BLOOD, URINE NEGATIVE (NEGATIVE); *CLARITY,URINE CLEAR (CLEAR); *COLOR,URINE Orange (YELLOW); *KETONES,URINE 1+ (NEGATIVE); *PROTEIN,URINE NEGATIVE (NEGATIVE); *UROBILINOGEN,URINE 0.2 E.U./dl (NORMAL); LEUKOCYTE ESTERASE ,URINE 1+ (NEGATIVE); NITRITE, URINE NEGATIVE (NEGATIVE); UGLUCOSE TRACE (NEGATIVE)
[2025-05-07 17:01] LABS: PLATELET COUNT (AUTO) 200 K/uL (179-408); RED BLOOD CELL COUNT(AUTO) 3.68 MIL/uL (3.63-4.92); RED CELL DISTRIBUTION WIDTH 13.8 % (12.3-17.7); WHITE BLOOD COUNT (AUTO) 7.7 K/uL (3.8-11.8)
[2025-05-07 17:07] LABS: CREATININE 1.3 mg/dL (0.6-1.3); SODIUM SERUM 136.0 mmol/L (136-145); UREA NITROGEN, BLOOD 14.0 mg/dL (7-18)
[2025-05-07] MEDS ORDERED: IOHEXOL 300MG/ML 100 ML INFUS..BTL ONE (17:11)
[2025-05-07] MEDS ORDERED: SWABABLE VALVE TRANSFER SET EA MC ONE (17:11)
[2025-05-07] MEDS ORDERED: IV NORMAL SALINE 250 ML IV ONE (17:11)
[2025-05-07 17:13] LABS: ASPARTATE AMINOTRANSFERASE 14.0 U/L (15-37); TOTAL PROTEIN, SERUM 7.3 g/dL (6.4-8.2)
[2025-05-07 17:15] LABS: SQUAMOUS EPITHELIAL CELL,UR FEW /HPF (NONE SEEN)
[2025-05-07] MEDS ORDERED: POTASSIUM BICARBONATE/CIT AC 25 MEQ TABLET.EFF ONE (17:36)
[2025-05-07] MEDS ORDERED: CEFTRIAXONE /D5W 50ML IVPB **ER PYXIS IV ONE (17:36)
[2025-05-07] MEDS ORDERED: OXYCODONE/APAP 5-325 MG TABLET ONE (17:37)
[2025-05-07] MEDS: OXYCODONE/APAP 5-325 MG TABLET PO ONE (17:42)
[2025-05-07] MEDS: POTASSIUM BICARBONATE/CIT AC 25 MEQ TABLET.EFF PO ONE (17:56)
[2025-05-07 18:07] VITALS: BP 147/65
[2025-05-07] MEDS ORDERED: CYANOCOBALAMIN 1000 MCG/ML VIAL ONE (18:16)
[2025-05-07] MEDS: CYANOCOBALAMIN 1000 MCG/ML VIAL IM ONE (18:22)
[2025-05-07] MEDS ORDERED: CEFD300C3 PO (18:46)
[2025-05-07] MEDS ORDERED: OXYC-128 PO ×2 (18:46→18:49)
[2025-05-07 19:09] VITALS: BP 147/65; TEMP 98.5; O2SAT 99
== END 2025-05-07 19:09 | disposition home or self-care (01) ==
LOC: ER 15:29
DX: N39.0 Urinary tract infection, site not specified (principal); E87.6 Hypokalemia; G20.A1 Parkinson's disease without dyskinesia, without mention of fluctuations; M79.7 Fibromyalgia; M25.552 Pain in left hip; R42 Dizziness and giddiness; R51.9 Headache, unspecified; F31.9 Bipolar disorder, unspecified; Z79.899 Other long term (current) drug therapy; Z90.710 Acquired absence of both cervix and uterus; Z87.2 Personal history of diseases of the skin and subcutaneous tissue
CPT/HCPCS: 99285; 70450; 96365; 80076; 80048; 81001; 82607; 83735; 85025; 87086; 36415; 93005; 74177; 96372; J0696; J3420; Q9967; A4606; A4663

== ENCOUNTER 2025-07-06 12:50 | Emergency (ER) | payer OTHER ==
[~2025-07-06] VITALS: Ht 162.6 cm; Wt 68.9 kg
[~2025-07-06 12:50] MED LIST changes: +CEFD300C3 PO; +OXYC-128 PO
[2025-07-06 13:39] VITALS: BP 133/71
[2025-07-06] MEDS ORDERED: HYDROMORPHONE 2 MG/1 ML DISP.SYRIN ONE (16:30)
[2025-07-06] MEDS ORDERED: KETOROLAC TROMETHAMINE 30 MG INJ ONE (16:30)
[2025-07-06] MEDS ORDERED: ONDANSETRON ODT 4 MG TAB.RAPDIS ONE (16:30)
[2025-07-06] MEDS ORDERED: OXYC-128 PO (16:36)
[2025-07-06] MEDS: HYDROMORPHONE 1 MG/1 ML DISP.SYRIN IM ONE (16:37)
[2025-07-06] MEDS: KETOROLAC TROMETHAMINE 30 MG INJ IM ONE (16:39)
[2025-07-06] MEDS: ONDANSETRON ODT 4 MG TAB.RAPDIS SL ONE (16:39)
[2025-07-06 17:51] VITALS: BP 120/66; O2SAT 100
== END 2025-07-06 17:52 | disposition home or self-care (01) ==
LOC: ER 12:50
DX: S46.911A Strain of unspecified muscle, fascia and tendon at shoulder and upper arm level, right arm, initial encounter (principal); R29.6 Repeated falls; M79.7 Fibromyalgia; M75.01 Adhesive capsulitis of right shoulder; I50.9 Heart failure, unspecified; G20.A1 Parkinson's disease without dyskinesia, without mention of fluctuations; F31.9 Bipolar disorder, unspecified; Z79.899 Other long term (current) drug therapy; Z90.710 Acquired absence of both cervix and uterus; W18.39XA Other fall on same level, initial encounter; Y93.89 Activity, other specified; Y92.89 Other specified places as the place of occurrence of the external cause; Y99.9 Unspecified external cause status
CPT/HCPCS: 99284; 73030; 96372 ×2; J1885; J1171; A4606; A4663; Q0162